=== PATIENT | female | born 1955 | race Two or more races ===

== ENCOUNTER 2023-06-27 11:26 | Emergency (ER) | payer OTHER ==
[~2023-06-27] VITALS: Ht 165.1 cm; Wt 85.4 kg
[2023-06-27] MEDS ORDERED: HYDROmorphone HCL 2 MG/ML VL/or syr IM ONE (12:45)
[2023-06-27] MEDS ORDERED: ONDANSETRON ODT 4 MG TAB PO ONE (12:45)
[2023-06-27] MEDS ORDERED: ETOMIDATE (2MG/ML) 20ML VIAL IV ONE ×2 (17:00→19:30)
[2023-06-27] MEDS ORDERED: MORPHINE SULFATE 4 MG/ML SYR/VIAL IV ONE ×2 (17:00→18:45)
[2023-06-27] MEDS ORDERED: ONDANSETRON HCL 4 MG/2 ML VIAL IV ONE ×2 (17:00→18:45)
[2023-06-27 18:10] VITALS: PULSE 66; RESP 18; O2SAT 97
[2023-06-27 19:26] VITALS: PULSE 70; RESP 16; O2SAT 97
[2023-06-27] MEDS ORDERED: TRAM50TA2 PO (21:02)
[2023-06-27 21:29] VITALS: BP 135/73; PULSE 74; RESP 15; TEMP 97.9; O2SAT 97
== END 2023-06-27 21:48 | disposition home or self-care (01) ==
LOC: ER 11:26
DX: S43.025A Posterior dislocation of left humerus, initial encounter (principal); S20.212A Contusion of left front wall of thorax, initial encounter; R51.9 Headache, unspecified; V43.52XA Car driver injured in collision with other type car in traffic accident, initial encounter; Y93.89 Activity, other specified; Y92.488 Other paved roadways as the place of occurrence of the external cause; Y99.8 Other external cause status
CPT/HCPCS: 23650; 70450; 73000; 73030; 96372; 96374; 96375; 96376; 99152; 99285; J1170; J2270; J2405; Q0162